=== PATIENT | male | born 1995 | race Caucasian/White ===

== ENCOUNTER 2018-06-22 18:28 | Emergency (ER) | payer MEDICAID ==
[~2018-06-22] VITALS: Ht 177.8 cm; Wt 118.2 kg
[2018-06-22 18:36] VITALS: BP 132/78
== END 2018-06-22 20:51 | disposition home or self-care (01) ==
LOC: ER 18:29
DX: B30.9 Viral conjunctivitis, unspecified (principal)
CPT/HCPCS: 99281